=== PATIENT | female | born 1955 | race Caucasian/White ===

== ENCOUNTER 2017-07-24 11:38 | Day surgery (SDC) | payer OTHER ==
[2017-07-24] MEDS ORDERED: ceFAZolin 2 GM/D5W 50 ML IV BAG (J0690 PER 500MG) As Ordered (11:49)
[2017-07-24] MEDS: LR 1,000 ML IV (12:06)
[2017-07-24 12:12] LABS: BEDSIDE GLUCOSE 130 MG/DL (80-115)
[2017-07-24] MEDS ORDERED: LEVALBUTEROL 1.25 MG/0.5 ML CONCENTRATE NEB As Ordered (12:28)
[2017-07-24] MEDS: LEVALBUTEROL 1.25 MG/0.5 ML CONCENTRATE NEB INH (12:43)
[2017-07-24] MEDS ORDERED: LIDOCAINE 2% INJ 100 MG/5 ML SDV (FOR ANES.) As Ordered (13:26)
[2017-07-24] MEDS ORDERED: PROPOFOL 200 MG/20 ML VIAL As Ordered (13:26)
[2017-07-24] MEDS ORDERED: ROCURONIUM BROMIDE 50 MG/5 ML VIAL As Ordered (13:26)
[2017-07-24] MEDS ORDERED: fentaNYL 100 MCG/2 ML INJECTION (J3010) As Ordered ×3 (13:27→15:28)
[2017-07-24] MEDS ORDERED: MIDAZOLAM INJ 2 MG/2 ML VIAL (J2250) As Ordered (13:27)
[2017-07-24] MEDS ORDERED: SUCCINYLCHOLINE 100 MG/5 ML SYRINGE (J0330) As Ordered (13:47)
[2017-07-24] MEDS: ceFAZolin 2 GM/D5W 50 ML IV BAG (J0690 PER 500MG) IV (13:49)
[2017-07-24] MEDS ORDERED: ONDANSETRON 4MG/2ML VIAL (J2405) As Ordered (15:55)
[2017-07-24] MEDS ORDERED: GLYCOPYRROLATE INJ 0.2 MG/ML 2 ML VIAL As Ordered (15:56)
[2017-07-24] MEDS: BUPIVACAINE HCL 0.25% 30 ML VIAL As Ordered (15:57)
[2017-07-24] MEDS: BUPIVACAINE LIPOSOME/PF 1.3% 20 ML VIAL (13.3MG/ML)(EXPAREL) As Ordered (15:57)
[2017-07-24] MEDS ORDERED: LR 1,000 ML IV (17:00)
[2017-07-24] MEDS ORDERED: fentaNYL 100 MCG/2 ML INJECTION (J3010) IV (17:00)
[2017-07-24] MEDS ORDERED: HYDROmorphone HCL 1 MG/ML SYRINGE (J1170) IV (17:00)
[2017-07-24] MEDS: ONDANSETRON 4MG/2ML VIAL (J2405) IV (17:09)
[2017-07-24] MEDS: PERCOCET 5MG/325MG TAB PO (17:09)
== END 2017-07-24 19:00 | disposition home or self-care (01) ==
LOC: M SDC 11:38
DX: K42.0 Umbilical hernia with obstruction, without gangrene (principal); E03.9 Hypothyroidism, unspecified; I10 Essential (primary) hypertension; E78.5 Hyperlipidemia, unspecified; F41.9 Anxiety disorder, unspecified; F32.9 Major depressive disorder, single episode, unspecified; J45.909 Unspecified asthma, uncomplicated; E66.01 Morbid (severe) obesity due to excess calories; E11.9 Type 2 diabetes mellitus without complications; M17.0 Bilateral primary osteoarthritis of knee; N32.81 Overactive bladder; Z79.899 Other long term (current) drug therapy; Z79.84 Long term (current) use of oral hypoglycemic drugs
CPT/HCPCS: 49653

== ENCOUNTER → 2017-08-16 | Outpatient (REF) | payer OTHER ==
[2017-08-16 14:41] LABS: IMMUNOGLOBULIN E 76.5 IU/ML (<100)
== END ==
LOC: M LAB REF 13:20
DX: R05 Cough (principal)
CPT/HCPCS: 82785

== ENCOUNTER → 2020-09-09 | Outpatient (CLI) | payer OTHER ==
[~2020-09-09] MED LIST: ALOG25TA PO; AZEL1SPR3; CITA20TA6 PO; HYDR10TAB PO; HYDR12.55 PO; LORA10CA PO; MELO15TA28 PO; METF10004 PO; MONT10TA10 PO; SIMV20TA22 PO; SYNT137T7 PO; TIZA2CAP PO; VENTAER IN
--- NOTE | 2020-09-09 16:59 | REP ---
INDICATION: BI KNEE PAIN. COMPARISON: None. TECHNIQUE: Bilateral knee series: 10 views. FINDINGS: Five views of each knee are presented. There is advanced osteoarthritis in the medial compartment the right knee with obliteration of the medial joint space and reactive sclerosis on both sides of the narrowed joint space. There is patellofemoral spurring and some mild lateral spurring as well on the right. No acute abnormality is seen. Vascular calcification is noted. On the left, there are similar findings although slightly less pronounced. Osteoarthritis is most pronounced on the left in the medial compartment. Patellofemoral compartment spurring is noted as well. There is medial compartment sclerosis as well. No acute erosive changes seen. Subtle fullness in the suprapatellar bursa bilaterally may reflect joint fluid. IMPRESSION: . Advanced bilateral 3 compartment osteoarthritis. This is most pronounced in the medial compartment of each knee. <Electronically signed by Seun Burger > 09/09/20 [id number]
== END ==
LOC: M SOG 15:04
PROVIDERS: ATTEND Orthopaedic Surgery Sports Medicine
DX: M17.0 Bilateral primary osteoarthritis of knee (principal)

== ENCOUNTER → 2020-10-05 | Outpatient (REF) | payer OTHER ==
[2020-10-05 17:59] LABS: BASO # 0.1 10^3/uL (0.0-0.2); BASO % 0.7 % (0.0-1.0); EOS # 0.2 10^3/uL (0.0-0.5); HEMATOCRIT 38.4 % (36.0-47.0); HEMOGLOBIN 12.3 g/dl (12.0-15.5); LYMPH % 25.9 % (24.0-44.0); MEAN CORPUSCULAR HEMOGLOBIN 28.7 pg (27.0-33.0); MEAN CORPUSCULAR VOLUME 89.5 fl (80.0-96.0); MONO # 0.7 10^3/uL (0.0-0.8); MONO % 8.9 % (2.0-8.0); NEUTROPHILS # 4.8 10^3/uL (1.5-8.5); PLATELET COUNT, AUTOMATED 282 10^3/uL (150-450); RED BLOOD COUNT 4.29 10^6/uL (4.00-5.40); WHITE BLOOD COUNT 7.7 10^3/uL (4.0-10.0)
== END ==
LOC: M LAB REF 17:03
PROVIDERS: ATTEND Nurse Practitioner Family
DX: J45.40 Moderate persistent asthma, uncomplicated (principal)

== ENCOUNTER 2020-11-02 06:24 | Inpatient (IN) | payer OTHER ==
[~2020-11-02] VITALS: Ht 152.4 cm; Wt 107.9 kg
[~2020-11-02 06:24] MED LIST changes: +ACETAMINOPHEN 500 MG TAB PO ONE; -AZEL1SPR3; +AZEL1SPR3 NARES; +FLUT15.820; +FLUT1INH3 INH; +IPRA6SP; +LORA-243 PO; +LR 1,000 ML IV ONE; +MUCI600T31 PO; +NAPROXEN 250 MG TAB PO ONE; +NS 1,000 ML IV SCH; +OMEP1CAP73 PO; +PREGABALIN 25 MG CAP (LYRICA) PO ONE; +SYNT125T PO; +TESS100C PO; +TIOT18INH INH; +UNRESOLVED CLARIFICATION ENTRY XX SCH; +dexameTHASONE 4 MG/ML 1ML VIAL (J1100 PER 1MG) IV ONE
[2020-11-02] MEDS ORDERED: ROPIVA 125MG/EPINEPH 0.25MG/CLONID 40MCG/KETOR 15MG IN NS 50ML SYRINGE XX ONE (07:00)
[2020-11-02] MEDS ORDERED: TRANEXAMIC ACID 100 MG/ML 10ML VIAL As Ordered ONE (07:26)
[2020-11-02] MEDS ORDERED: TRANEXAMIC ACID INJection 1,000 MG in NS 60 ML IV ONE (07:30)
[2020-11-02] MEDS ORDERED: ceFAZolin SOD 2 GM in IV 1 EA IV ONE (07:35)
[2020-11-02] MEDS ORDERED: PREGABALIN 25 MG CAP (LYRICA) PO ONE (07:35)
[2020-11-02] MEDS ORDERED: dexameTHASONE 4 MG/ML 1ML VIAL (J1100 PER 1MG) IV ONE (07:35)
[2020-11-02] MEDS ORDERED: NAPROXEN 250 MG TAB PO ONE (07:35)
[2020-11-02] MEDS ORDERED: ACETAMINOPHEN 500 MG TAB PO ONE (07:35)
[2020-11-02] MEDS ORDERED: dexameTHASONE 4 MG/ML 1ML VIAL (J1100 PER 1MG) As Ordered ONE (08:15)
[2020-11-02] MEDS ORDERED: MIDAZOLAM INJ 2MG/2ML VIAL (J2250 PER 1MG) As Ordered ONE (08:15)
[2020-11-02] MEDS ORDERED: SEVOFLURANE INHAL SOLN 250 ML BTL As Ordered ONE (08:15)
[2020-11-02] MEDS ORDERED: LIDOCAINE 2% 100MG/5ML SDV (FOR ANES.) As Ordered ONE (08:15)
[2020-11-02] MEDS ORDERED: propofoL 200 MG/20 ML VIAL As Ordered ONE ×2 (08:15→10:12)
[2020-11-02] MEDS ORDERED: fentaNYL 100 MCG/2 ML INJECTION (J3010) As Ordered ONE ×2 (08:15→10:06)
[2020-11-02] MEDS ORDERED: ePHEDrine SULFATE 25 MG/5 ML(5MG/ML) SYRINGE As Ordered ONE (08:23)
[2020-11-02] MEDS ORDERED: PHENYLephrine 500MCG 5ML (100MCG/ML) SYRINGE As Ordered ONE ×2 (09:06→10:22)
[2020-11-02] MEDS ORDERED: LIDOCAINE 2% JELLY 5ML TUBE As Ordered ONE (09:07)
[2020-11-02] MEDS: LR 1,000 ML IV SCH ×2 (11:00→21:40)
[2020-11-02] MEDS ORDERED: oxyCODONE 5MG TAB PO PRN ×2 (11:15→11:55)
[2020-11-02] MEDS ORDERED: LR 1,000 ML IV SCH (11:15)
[2020-11-02] MEDS ORDERED: HYDROMORPHONE HCL 0.5 MG/ 0.5 ML SYRINGE (J1170 PER 1) IV PRN (11:15)
[2020-11-02] MEDS ORDERED: fentaNYL 100 MCG/2 ML INJECTION (J3010) IV PRN (11:15)
[2020-11-02] MEDS ORDERED: ONDANSETRON 4MG/2ML VIAL IV PRN ×2 (11:15→11:55)
--- NOTE | 2020-11-02 11:38 | ROOPDOC ---
[facility] Report Of Operation Report of Operation DATE OF PROCEDURE: 11/02/20 PREPROCEDURE DIAGNOSES: Left knee osteoarthritis POSTPROCEDURE DIAGNOSES: Knee osteoarthritis PROCEDURE: Left total knee arthroplasty SURGEON: MD Simon [employer] SALES MANAGER: ANESTHESIA: Spinal ESTIMATED BLOOD LOSS: Less than 200 mL. COMPLICATIONS: No complications REMARKS: Tourniquet inflated for approximately 70 minutes with a few minute interval in between. PROCEDURE NOTE: The patient was seen in the preoperative area and her left lower extremity was marked. Her past medical history did not exhibit any changes prior to surgical intervention. Components: Mulliken triathlon, X3 asymmetric patella 32 x 10 mm Triathlon posterior stabilized femoral component size 3 left Simplex bone cement, 2 packages Triathlon primary tibial baseplate size 3 Triathlon tibial bearing insert, 3 x 13 mm DESCRIPTION OF PROCEDURE: The patient was brought to the operating room and she was positioned on the table for a spinal anesthetic. A procedural timeout was carried out. The patient underwent a spinal anesthetic. She was then placed supine on the operating room table with appropriate padding and positioning. The left lower extremity had a tourniquet was applied and inflated into separate periods for total of 70 minutes. Throughout the procedure. She received 2 g of Ancef IV and 1 g of IV tranexamic acid. Prior to incision. The patient had a chlorhexidine brush swab and cleansed of the leg with 2 times, alcohol, cleansed his than a hydrogen peroxide White of the incision site followed by 2 times chlorhexidine prep. A sterile prep and drape and fold. During the sterile drape. An additional chlorhexidine prep was applied. A surgical safety timeout and checklist was performed. Incision was made in the standard fashion. This was carried down through skin and subcutaneous tissue to the fascia of the knee. A medial arthrotomy is carried out. Suction was applied to the joint fluid. This was carried down and soft tissue releases medially were performed. The patella was then everted and the fat pad was excised with electrocautery. This was followed by the anterior cruciate and the posterior cruciate ligaments. Hemostasis was achieved with the electrocautery. The tourniquet was inflated due to excessive oozing. Hohmann retractors were placed to protect the collateral ligaments. The anterior aspect of the femur had some soft tissue off the anterolateral aspect removed with electrocautery. The medial placed intramedullary reamer was placed followed by the intramedullary jig placed at 6 of valgus cut angle for the left knee. This was attached and pins were placed for the distal femoral cut, which was performed. The jigs were then removed and the cut was checked and found to be good. Attention was turned to the tibia. The external tibial jig was applied, and 9 mm of bone was taken off the high lateral side. This was checked prior to excision with the blade runner. The PCL protecting retractor was placed and the saw cuts were made. The bone was removed. Attention was then turned to the medial tibial plateau where there was some sclerotic bone. There had been some skiving tears of the saw was run over this to level this portion of the bone out. Attention was turned to the femur and the femoral sizing guide for the left side at 3 of external rotation was placed. This was found to be approximately a size 3. The 3 4-in-1 cutting block was applied. The anterior cut was made followed by the posterior and the anterior, posterior chamfers. The guide was removed. A lamina clerk rating was used to expose the space between the bones. The medial and lateral menisci as well as some PCL remnants were removed with electrocautery. Posterior osteophytes were removed with a curved osteotome and a rongeur. The tibia was then sized to a size 3. This was pinned in place in the appropriate amount of external rotation and the broach was impacted appropriately. Trial components were placed. The knee was taken through a range of motion. It was found to be stable in extension and flexion with a 13 mm polyethylene in position. Some medial soft tissue releases were performed and medial osteophytes were removed with a rongeur in order to check this balance. The patella was then addressed. A freehand cut was performed after measuring approximately 21 mm thickness. 10 mm of thickness, was removed freehand cut. A 32 mm polyethylene guide was placed and reamed and trialed and found to be appropriate. A lateral facetectomy was carried out using a rongeur to remove excess bone. The bone was then irrigated with normal sterile saline and tranexamic acid was placed in the wound with some Betadine to soak for 3 minutes. The final components were opened The wound was then irrigated out after 3 minutes. The tourniquet was let down an d the leg was placed in extension to look for any obvious bleeding vessels. No bleeding vessels were obvious. There was just a small trickle was from the central canal of the femur. The tourniquet was then placed up again and the bones were irrigated with the sterile solution and the local anesthetic cocktail of RACK was applied and a periarticular manner. Dry sponges were applied to the bone surfaces to tamp and dry. The cement was then mixed using 2 packages of non-antibiotic cement. Cement was applied to the tibia component followed by the tibia itself and impacted with excess cement that was extruded removed with a Pima. Cement was then applied to the femoral component and the femur. This was placed in position and impacted. Extruded cement was removed with a Pima. The 11 mm polyethylene insert was placed. The leg was brought into extension and the patellar component had cement applied to the patella and the component and this was held in place with the appropriate clamp. After positioned appropriately. Leg was brought up into flexion and extruded cement was again removed. The cement was allowed to dry with the leg in extension and a dilute Betadine solution in the knee joint. Once the cement had cured, the knee was brought into flexion and a 13 mm po lyethylene insert was placed. This was taken through a range of motion and found to be stable in flexion and extension. The trial polyethylene was removed and the knee was irrigated. The final polyethylene 13 mm insert was placed and impacted and tested to be secure with a Pima. The wound was then thoroughly irrigated and all exposed. Bleeders were treated with electrocautery. Interrupted 1. 0 Monocryl sutures were used to tack the arthrotomy closed. This was followed by the running strata fix suture, #1. The subcutaneous tissue was closed with a #1 Vicryl followed by running 2-0 Vicryl. Due to the paperlike soft tissue of the skin at the distal end of the wound. A running locking 2. 0 nylon suture was used. A Mepilex dressing was placed. ABD pads plus an Jay Jay wrap were applied to the limb. The patient also received an ice pack in recovery. She was taken to recovery in stable condition with no known complications. I spoke with her sister postoperatively. At her request. I contacted the hospitalist service for admission for this patient. I completed the orthopedic postop total joint arthroplasty knee set of orders. The patient had x-rays and PACU which demonstrated that the prosthesis was in good position with no obvious complications. Procedure the patient for review tomorrow morning to determine if she has been progressing well enough for discharge home KHADAR SARGENT MD November 02, 2020 11:38
[2020-11-02] MEDS ORDERED: traMADol 50 MG TAB PO PRN ×2 (11:50→11:55)
--- NOTE | 2020-11-02 11:57 | REP ---
INDICATION: S/P LEFT TOTAL KNEE, PT IN RECOVERY ROOM COMPARISON: 09/09/2020. TECHNIQUE: AP and lateral left knee. FINDINGS: Total knee prosthesis is in good position. Osseous structures are well-aligned. Postsurgical air is seen anteriorly. IMPRESSION: Left total knee prosthesis in good position. <Electronically signed by Ramiro Petersen > 11/02/20 [id number]
[2020-11-02] MEDS: ACETAMINOPHEN TAB 650MG DOSE (2X325MG) PO SCH ×3 (12:00→23:18)
[2020-11-02] MEDS ORDERED: SENNA 8.6 MG TAB (SENOKOT) PO PRN (12:00)
[2020-11-02 12:15] VITALS: BP 120/76
[2020-11-02] MEDS ORDERED: MOM 30ML SUSPENSION UDC PO PRN (12:35)
[2020-11-02] MEDS ORDERED: MAALOX 30 ML SUSP *UDC PO PRN (12:35)
[2020-11-02] MEDS ORDERED: ALBUTEROL 90 MCG/ACT 8GM HFA INHALER INH PRN (12:40)
[2020-11-02] MEDS ORDERED: DEXTROSE 50% 50 ML SYRINGE IV PRN (12:40)
[2020-11-02] MEDS ORDERED: GLUCOSE 4GM CHEW TABLET PO PRN (12:40)
[2020-11-02] MEDS ORDERED: GLUCAGON INJ 1MG VIAL SC PRN (12:40)
[2020-11-02 12:45] VITALS: BP 140/76
--- NOTE | 2020-11-02 12:46 | HPEPDOC ---
[facility] Medical History & Physical Date of Admission November 02, 2020 Date of Service: November 02, 2020 History and Physical CHIEF COMPLAINT: Left knee arthroplasty HISTORY OF PRESENT ILLNESS: 65-year-old female admitted to the hospital status post same-day surgery for total left knee replacement. Patient tells me she's been having arthritis in her knees for a long time and she had failed conservative management it got to the point were was fill-un-cycw and intolerable pain or she opted to have a left total knee replacement with Dr. Montes which was completed on 11/02/2020. Postoperatively I was asked by Dr. Montes to admit the patient for pain control and evaluation by physical therapy. At this time patient tells me she believes her surgery went well and she feels her pain is well-controlled. She denies any chest pain or shortness of breath or abdominal pain. She does endorse that she has right knee pain and hopes to get a right knee replacement as well down the line. PAST MEDICAL/SURGICAL HISTORY: Asthma Hypertension Hyperlipidemia Hypothyroidism Ihx-gjctqcf-eauvingra diabetes Anxiety and depression Umbilical hernia repair ~ 4 years ago SOCIAL HISTORY: Denies alcohol use Denies tobacco use Denies illicit drug use Lives at home with her FAMILY HISTORY: Father and brother have a history of CAD Mother has a history of CVA ALLERGIES: Please see below. REVIEW OF SYSTEMS: 10 point review of systems complete all negative otherwise stated in HPI HOME MEDICATIONS: Please see below. PHYSICAL EXAMINATION: Constitutional: Awake and alert, in no apparent distress, obese. ENT: Sclera are clear. Mucosa is moist. Respiratory: Lungs CTA bilaterally. No respiratory distress. Cardiovascular: RRR S1 and S2 are normal, no murmur Gastrointestinal: Abdomen is soft, non distended, non tender, BS present. Musculoskeletal: No lower extremity edema. Dressing around left knee. Neurologic: No focal neurological deficit. Mental Status: A&O x3, normal affect Skin: No visible rashes LABORATORY DATA: See below. IMAGING: See chart MICROBIOLOGY: Please see below. ASSESSMENT/PLAN 65-year-old female admitted after same-day surgery for left knee total arthroplasty for pain control and evaluation by physical therapy. # Total left knee arthroplasty: Management per orthopedic surgery Dr. Montes. Pain control. Baby aspirin twice a day. Antibiotics Ancef per surgery. PT/OT. # Hypertension: Continue home meds. Monitor and titrate. Takes hydralazine twice daily which isn't a typical first-line medication for hypertension I will continue for now and defer changing her antihypertensive medications to her primary care physician. # DM: ISS. Frequent Accu-Cheks. Hypoglycemic precautions. Hold home metformin. # Hypothyroidism: resume Synthroid. # Asthma: Not in exacerbation. Continue medications and inhalers. # Hyperlipidemia: Continue statin # Anxiety and depression: Continue home citalopram # DVT prophylaxis: Heparin A Yousef Hospitalist Vital Signs Vital Signs Date Time Temp Pulse Resp B/P (MAP) Pulse Ox O2 Delivery O2 Flow Rate FiO2 11/02/20 11:50 96.5 78 18 138/67 (90) 100 11/02/20 11:46 Room Air Laboratory Data Labs 24H Laboratory Tests 2 11/02/20 07:25: Bedside Glucose (Misc Panel) 159H Home Medications Scheduled Alogliptin Benzoate (Alogliptin) 25 Mg Tab, 25 MG PO DAILY Azelastine HCl (Azelastine HCl) 0.1 % Spr, 0.1 % NA BID Benzonatate (Tessalon Perle) 100 Mg Capsule, 100 MG PO TID Citalopram Hydrobromide (Citalopram HBr) 20 Mg Tab, 20 MG PO DAILY Fluticasone Propion/Salmeterol (Fluticasone-Salmeterol 232-14) 1 Each Aer.pow.ba, 1 INH INH BID Fluticasone Propionate (Fluticasone Propionate) 15.8 Ml Tatum.susp, 50 MCG NA DAILY Guaifenesin (Mucinex) 600 Mg Tab.er.12h, 600 MG PO BID Hydralazine HCl (Hydralazine HCl) 10 Mg Tab, 10 MG PO BID Hydrochlorothiazide (Hydrochlorothiazide) 12.5 Mg Tab, 12.5 MG PO DAILY Ipratropium [place] (Ipratropium [place]) 15 Ml Tatum, 1 SPRAY NA DAILY Levothyroxine Sodium (Synthroid) 125 Mcg Tablet, 125 MCG PO DAILY Loratadine (Loratadine) 10 Mg Tablet, 10 MG PO DAILY Meloxicam (Meloxicam) 15 Mg Tab, 7.5 MG PO DAILY Metformin HCl (Metformin HCl) 1,000 Mg Tab, 500 MG PO BID Montelukast Sodium (Montelukast Sodium) 10 Mg Tab, 10 MG PO DAILY Omeprazole (Omeprazole) 20 Mg Capsule.dr, 20 MG PO DAILY Simvastatin (Simvastatin) 20 Mg Tab, 20 MG PO DAILY Tiotropium [place] Monohydrate (Spiriva) 18 Mcg Cap.w.dev, 1 INHALATION INH DAILY Scheduled PRN Albuterol Sulfate (Ventolin Hfa) 108 Mcg/Act Aer, 108 MCG IN Q6HP PRN for WHEEZING Tizanidine HCl (Tizanidine HCl) 2 Mg Cap, 2 MG PO Q6HP PRN for MUSCLE SPASMS Allergies Coded Allergies: ENVIROMENTAL (Verified Allergy, Unknown, 10/26/20) A-FIB/CHADSVASC A-FIB History Current/History of A-Fib/PAF?: No JAN SEAMAN MD November 02, 2020 12:46
[2020-11-02 13:19] LABS: HEMATOCRIT 37.7 % (36.0-47.0); HEMOGLOBIN 12.1 g/dl (12.0-15.5); MEAN CORPUSCULAR HEMOGLOBIN 28.7 pg (27.0-33.0); MEAN CORPUSCULAR HGB CONC 32.1 g/dl (32.0-36.5); MEAN CORPUSCULAR VOLUME 89.3 fl (80.0-96.0); PLATELET COUNT, AUTOMATED 298 10^3/uL (150-450); RED BLOOD COUNT 4.22 10^6/uL (4.00-5.40); WHITE BLOOD COUNT 10.4 10^3/uL (4.0-10.0)
[2020-11-02 13:45] VITALS: BP 135/77
[2020-11-02] MEDS ORDERED: MELO7.5T35 PO (13:51)
[2020-11-02] MEDS ORDERED: TRAZ-252 PO (13:51)
[2020-11-02] MEDS ORDERED: LEVO125T4 PO (13:51)
[2020-11-02] MEDS ORDERED: JARD1TAB PO (13:51)
[2020-11-02] MEDS ORDERED: VITA50005 PO (13:51)
[2020-11-02 13:52] LABS: CALCIUM LEVEL 9.5 MG/DL (8.8-10.2); CREATININE FOR GFR 1.14 MG/DL (0.55-1.30); GLOMERULAR FILTRATION RATE 51.1 (>45); POTASSIUM SERUM 4.1 MEQ/L (3.5-5.1); THYROID STIMULATING HORMONE 0.414 uIU/ML (0.358-3.740)
[2020-11-02] MEDS ORDERED: METF-839 PO (14:02)
[2020-11-02 14:45] VITALS: BP 112/61
[2020-11-02 15:45] VITALS: BP 110/60
[2020-11-02] MEDS: ceFAZolin SOD 2 GM in IV 1 EA IV SCH ×2 (16:27→23:18)
[2020-11-02] MEDS: BENZONATATE 100 MG CAP PO SCH ×2 (16:27→21:19)
[2020-11-02] MEDS ORDERED: ACETAMINOPHEN TAB 650MG DOSE (2X325MG) PO SCH (18:00)
[2020-11-02] MEDS: HumaLOG INSULIN (NovoLOG) PER UNIT SC SCH (18:14)
--- NOTE | 2020-11-02 18:20 | ECGEPIP ---
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
[2020-11-02] MEDS ORDERED: SIMVASTATIN 20 MG TAB PO SCH (21:00)
[2020-11-02] MEDS ORDERED: HumaLOG INSULIN (NovoLOG) PER UNIT SC SCH (21:00)
[2020-11-02] MEDS ORDERED: DOCUSATE SODIUM 100MG CAPSULE PO SCH (21:00)
[2020-11-02] MEDS: HEPARIN SOD (PORCINE) 5000UNITS/ML 1ML VIAL/SYRINGE SQ SCH (21:18)
[2020-11-02] MEDS: DOCUSATE SODIUM 100MG CAPSULE PO SCH (21:18)
[2020-11-02] MEDS: NAPROXEN 250 MG TAB PO SCH (21:18)
[2020-11-02] MEDS: ASPIRIN 81MG ENTERIC TABLET PO SCH (21:19)
[2020-11-02] MEDS: **hydrALAZINE** 10 MG TAB PO SCH (21:19)
[2020-11-02] MEDS: guaiFENesin ER 600 MG TAB PO SCH (21:19)
[2020-11-02 22:00] VITALS: BP 136/70
[2020-11-03] MEDS ORDERED: tiZANidine 4 MG TAB PO PRN (00:20)
[2020-11-03] MEDS: traZODone 50 MG TAB PO SCH ×2 (00:31→08:53)
[2020-11-03 02:00] VITALS: BP 117/71
[2020-11-03] MEDS: ACETAMINOPHEN TAB 650MG DOSE (2X325MG) PO SCH (05:09)
[2020-11-03 06:00] VITALS: BP 121/63
[2020-11-03] MEDS ORDERED: LEVOTHYROXINE 125MCG TABLET (0.125MG) PO SCH (06:00)
[2020-11-03 07:03] LABS: ALBUMIN 3.5 GM/DL (3.2-5.2); ALT/SGPT 16 U/L (12-78); BILIRUBIN,TOTAL 0.3 MG/DL (0.2-1.0); BLOOD UREA NITROGEN 19 MG/DL (7-18); CARBON DIOXIDE LEVEL 29 MEQ/L (21-32); CHLORIDE LEVEL 104 MEQ/L (98-107); CREATININE FOR GFR 0.97 MG/DL (0.55-1.30); GLOMERULAR FILTRATION RATE > 60.0 (>45); GLUCOSE, FASTING 133 MG/DL (70-100); POTASSIUM SERUM 4.3 MEQ/L (3.5-5.1); SODIUM LEVEL 139 MEQ/L (136-145); TOTAL PROTEIN 6.2 GM/DL (6.4-8.2)
--- NOTE | 2020-11-03 07:24 | IPNPDOC ---
Text Note Date of Service The patient was seen on 11/03/20. NOTE Postop day 1 from left total knee arthroplasty Patient was seen this morning. Overall, she states that her pain was well- controlled. She did have some muscular spasms and the pain medication did help with this. She denies any chest pain or shortness of breath. She was able to mobilize with the Rollator walker in the room. The left lower extremity is grossly neurovascularly intact. The dressing is intact with no obvious staining.. There is some bruising around the knee, h owever. The bulky dressing was taken down. X-ray imaging taken in PACU, demonstrates that the left total knee arthroplasty is in good position without any obvious signs of complication. The patient will work with physical therapy for possible discharge home today. Please see below for discharge instructions. The dressing will remain intact for 7 days. She will follow-up in approximately 10-14 days in the office for suture removal. The patient will have home care for nursing, physical therapy and occupational therapy arranged. Discharge Instructions Total Knee Arthroplasty 1. Pain: You may take medication as prescribed for pain. Supplement with ibuprofen and Tylenol as needed. Ice pack to operative knee as tolerated. 2. Wound care: Remove dressing on postop day 7. Call [phone] with any questions or concerns. Hygiene: The patient may shower. No tub baths. Check dressing seal prior to bathing. Once dressing is off, use Saran wrap around the knee and keep out of the stream of the shower to keep the wound dry. 3. Activity: WBAT on the left lower extremity. Front wheeled walker versus crutches for ambulation. Fall precautions. 4. Driving: No driving until cleared by your surgeon. Do not drive if taking narcotic pain medications as these may make you drowsy. 5. DVT Prophylaxis: Continue taking aspirin 81 mg by mouth twice a day as prescribed for the prevention of blood clots for 4 weeks. Ankle pumps every 1 hour while awake. TOM hose at all times for 1 month after surgery. May remove for hygiene and wound care. 6. Placement: Plan is to discharge patient to home with home health including nursing and physical therapy. 7. Surgeon Follow-up: The patient is scheduled to be seen in Dr. Sargent's office 2 weeks post op with xrays. 8. Primary care Follow-up: Please see your primary care provider in the next 2 to 5 weeks for general medical re-evaluation and medication review. 9. Labs: CBC without differential and BMP to be drawn on postop day 3 with results to PCP and please fax to [phone]. 10. Please contact [facility] if you have any questions or concerns at [phone]. VS,Fishbone, I+O VS, Fishbone, I+O Laboratory Tests 11/02/20 13:06 11/03/20 06:10 Vital Signs Date Time Temp Pulse Resp B/P (MAP) Pulse Ox O2 Delivery O2 Flow Rate FiO2 11/03/20 04:44 1.0 11/03/20 02:00 97.9 69 18 117/71 (86) 92 Nasal Cannula I&O- Last 24 Hours up to 6 AM 11/03/20 06:00 Intake Total 3945 ml Output Total 2050 ml Balance 1895 ml KHADAR SARGENT MD November 03, 2020 07:24
[2020-11-03] MEDS ORDERED: TIOTROPIUM INHALER/CAPSULE (SPIRIVA) INH SCH (08:00)
[2020-11-03] MEDS: DOCUSATE SODIUM 100MG CAPSULE PO SCH (08:46)
[2020-11-03] MEDS: ceFAZolin SOD 2 GM in IV 1 EA IV SCH (08:46)
[2020-11-03] MEDS: HumaLOG INSULIN (NovoLOG) PER UNIT SC SCH (08:46)
[2020-11-03] MEDS: BENZONATATE 100 MG CAP PO SCH (08:46)
[2020-11-03 08:47] VITALS: BP 117/71
[2020-11-03] MEDS: NAPROXEN 250 MG TAB PO SCH (08:47)
[2020-11-03] MEDS: **hydrALAZINE** 10 MG TAB PO SCH (08:47)
[2020-11-03] MEDS: HEPARIN SOD (PORCINE) 5000UNITS/ML 1ML VIAL/SYRINGE SQ SCH (08:48)
[2020-11-03] MEDS: ASPIRIN 81MG ENTERIC TABLET PO SCH (08:48)
[2020-11-03] MEDS: guaiFENesin ER 600 MG TAB PO SCH (08:52)
[2020-11-03] MEDS ORDERED: MONTELUKAST 10 MG TAB PO SCH (09:00)
[2020-11-03] MEDS ORDERED: ASCORBIC ACID 500 MG TAB PO SCH (09:00)
[2020-11-03] MEDS ORDERED: LORATADINE 10 MG TAB PO SCH (09:00)
[2020-11-03] MEDS ORDERED: CitaloPRAM (CeleXA) 20 MG TAB PO SCH (09:00)
[2020-11-03] MEDS ORDERED: FERROUS SULFATE 325MG TAB PO SCH (09:00)
[2020-11-03] MEDS ORDERED: hydroCHLOROthiazide 12.5 MG CAPSULE PO SCH (09:00)
[2020-11-03] MEDS ORDERED: IPRATROPIUM 0.06% NASAL SPRAY 15 ML (ATROVENT) SCH (09:00)
[2020-11-03] MEDS ORDERED: OMEPRAZOLE 20 MG CAP PO SCH (09:00)
--- NOTE | 2020-11-03 09:44 | DS.PDOC ---
Discharge Summary General Date of Admission November 02, 2020 at 12:33 Date of Discharge 11/03/20 Discharge Summary PROCEDURES PERFORMED DURING STAY: Total right knee arthroplasty ADMITTING/DISCHARGE DIAGNOSES: 1. Total right knee arthroplasty COMPLICATIONS/CHIEF COMPLAINT: Left Knee Osteoarthritis. HISTORY OF PRESENT ILLNESS/HOSPITAL COURSE: 65-year-old female admitted to the hospital status post same-day surgery for total left knee replacement. Patient tells me she's been having arthritis in her knees for a long time and she had failed conservative management it got to the point were was [id number] and intolerable pain or she opted to have a left total knee replacement with Dr. Montes which was completed on 11/02/2020. Postoperatively I was asked by Dr. Montes to admit the patient for pain control and evaluation by physical therapy. Patient was evaluated by physical therapy who cleared the patient for discharge patient will follow-up in the clinic with Dr. Montes. DISCHARGE MEDICATIONS: Please see below. ALLERGIES: Please see below. PHYSICAL EXAMINATION ON DISCHARGE: VITAL SIGNS: Please see below. Constitutional: Awake and alert, in no apparent distress, obese. ENT: Sclera are clear. Mucosa is moist. Respiratory: Lungs CTA bilaterally. No respiratory distress. Cardiovascular: RRR S1 and S2 are normal, no murmur Gastrointestinal: Abdomen is soft, non distended, non tender, BS present. Musculoskeletal: No lower extremity edema. Dressing around left knee. Neurologic: No focal neurological deficit. Mental Status: A&O x3, normal affect Skin: No visible rashes LABORATORY DATA: Please see below. IMAGING: See chart PROGNOSIS: Fair ACTIVITY: [As tolerated]. DIET: Carbohydrate consistent diet DISPOSITION: Home with home health DISCHARGE INSTRUCTIONS: Please follow up with your primary care physician within 1 week from discharge. If you do not have one, please follow up with us to schedule an appointment. Please keep all of your follow up appointments. Please call central to book your appointments with hospital specialists. Please take all your medications as prescribed. Please call/come to Clinic or go to the Emergency Department if - Temp >101, intractable Nausea/Vomiting, Diarrhea, Mouth sores, Headaches, Altered mental status, Seizures, sudden onset of swelling, bleeding, shortness of breath or chest pain. ITEMS TO FOLLOWUP ON ON OUTPATIENT: Follow-up with PCP within 5 days of discharge Follow-up with Dr. Montes in clinic DISCHARGE CONDITION: [Stable]. TIME SPENT ON DISCHARGE: 35 minutes. Vital Signs/I&Os Vital Signs Date Time Temp Pulse Resp B/P (MAP) Pulse Ox O2 Delivery O2 Flow Rate FiO2 11/03/20 08:47 117/71 11/03/20 04:44 1.0 11/03/20 02:00 97.9 69 18 92 Nasal Cannula I&O- Last 24 Hours up to 6 AM 11/03/20 06:00 Intake Total 3945 ml Output Total 2050 ml Balance 1895 ml Laboratory Data Labs 24H Laboratory Tests 2 11/02/20 13:06: Nucleated Red Blood Cells % (auto) 0.0, Anion Gap 8, Glomerular Filtration Rate 51.1, Calcium Level 9.5, Thyroid Stimulating Hormone (TSH) 0.414 11/02/20 16:53: Bedside Glucose (Misc Panel) 286H 11/02/20 20:38: Bedside Glucose (Misc Panel) 250H 11/03/20 06:10: Anion Gap 6L, Glomerular Filtration Rate > 60.0, Calcium Level 9.0, Total Bilirubin 0.3, Aspartate Amino Transf (AST/SGOT) 14, Alanine Aminotransferase (ALT/SGPT) 16, Alkaline Phosphatase 93, Total Protein 6.2L, Albumin 3.5, Albumin/Globulin Ratio 1.3 CBC/BMP Laboratory Tests 11/02/20 13:06 11/03/20 06:10 FSBS Laboratory Tests Test 11/02/20 16:53 11/02/20 20:38 Range/Units Bedside Glucose (Misc Panel) 286 250 80-115 MG/DL Discharge Medications Scheduled Alogliptin Benzoate (Alogliptin) 25 Mg Tab, 25 MG PO DAILY, (Reported) Azelastine HCl (Azelastine HCl) 0.1 % Spr, 1 SPRAY NARES BID, (Reported) Benzonatate (Tessalon Perle) 100 Mg Capsule, 100 MG PO TID, (Reported) Citalopram Hydrobromide (Citalopram HBr) 20 Mg Tab, 20 MG PO DAILY, (Reported) Empagliflozin (Jardiance) 10 Mg Tablet, 10 MG PO DAILY, (Reported) Ergocalciferol (Vitamin D2) (Vitamin D2) 50,000 Units Cap, 1 CAP PO 1XWK, (Reported) SUNDAYS Guaifenesin (Mucinex) 600 Mg Tab.er.12h, 600 MG PO BID, (Reported) Hydralazine HCl (Hydralazine HCl) 10 Mg Tab, 10 MG PO BID, (Reported) Hydrochlorothiazide (Hydrochlorothiazide) 12.5 Mg Tab, 12.5 MG PO DAILY, (Reported) Levothyroxine Sodium (Synthroid) 125 Mcg Tablet, 125 MCG PO 6XWK, (Reported) EVERY DAY EXCEPT SUNDAYS Levothyroxine Sodium (Levothyroxine Sodium) 125 Mcg Tablet, 250 MCG PO 1XWK, (Reported) SUNDAYS Loratadine (Loratadine) 10 Mg Tablet, 10 MG PO DAILY, (Reported) Meloxicam (Meloxicam) 7.5 Mg Tablet, 7.5 MG PO Q12H, (Reported) Metformin HCl (Metformin HCl) 500 Mg Tablet, 500 MG PO BID, (Reported) Montelukast Sodium (Montelukast Sodium) 10 Mg Tab, 10 MG PO DAILY, (Reported) Omeprazole (Omeprazole) 20 Mg Capsule.dr, 20 MG PO DAILY, (Reported) Simvastatin (Simvastatin) 20 Mg Tab, 20 MG PO DAILY, (Reported) Tiotropium [place] Monohydrate (Spiriva) 18 Mcg Cap.w.dev, 1 INHALATION INH DAILY, (Reported) Trazodone HCl (Trazodone HCl) 50 Mg Tablet, 50 MG PO BID, (Reported) Scheduled PRN Tizanidine HCl (Tizanidine HCl) 2 Mg Cap, 2 MG PO Q8H PRN for MUSCLE SPASMS, (Reported) Allergies Coded Allergies: ENVIROMENTAL (Verified Allergy, Unknown, 10/26/20) JAN SEAMAN MD November 03, 2020 09:44
[2020-11-03] MEDS ORDERED: ACET1TAB55 PO (09:48)
[2020-11-03] MEDS ORDERED: NAPR-849 PO (09:48)
[2020-11-03] MEDS ORDERED: ASCO50TA PO (09:48)
[2020-11-03] MEDS ORDERED: TRAM50TA2 PO (09:48)
[2020-11-03] MEDS ORDERED: ASPI-551 PO (09:48)
[2020-11-03 10:00] VITALS: BP 122/63
== END 2020-11-03 12:25 | disposition home or self-care (01) | DRG 302 ==
LOC: M SDC 06:24 → EDSTATUS 07:30 → M MS5PR 12:10 → M SDC 12:32 → M MS5PR 12:33
PROVIDERS: ADMIT Orthopaedic Surgery Adult Reconstructive Orthopaedic Surgery; ATTEND Orthopaedic Surgery Adult Reconstructive Orthopaedic Surgery
PROC: 0SRD0J9 Replacement of Left Knee Joint with Synthetic Substitute, Cemented, Open Approach (ICD-10-PCS; principal; 2020-11-02 07:30)
DX: M17.12 Unilateral primary osteoarthritis, left knee (principal); E11.65 Type 2 diabetes mellitus with hyperglycemia; I10 Essential (primary) hypertension; J45.909 Unspecified asthma, uncomplicated; E78.5 Hyperlipidemia, unspecified; E03.9 Hypothyroidism, unspecified; F41.9 Anxiety disorder, unspecified; F32.9 Major depressive disorder, single episode, unspecified; Z79.84 Long term (current) use of oral hypoglycemic drugs

== ENCOUNTER → 2020-11-16 | Outpatient (CLI) | payer OTHER ==
[~2020-11-16] MED LIST changes: +ACET1TAB55 PO; -ACETAMINOPHEN 500 MG TAB PO ONE; +ASCO50TA PO; +ASPI-551 PO; +JARD1TAB PO; +LEVO125T4 PO; -LR 1,000 ML IV ONE; +MELO7.5T35 PO; +METF-839 PO; +NAPR-849 PO; -NAPROXEN 250 MG TAB PO ONE; -NS 1,000 ML IV SCH; -PREGABALIN 25 MG CAP (LYRICA) PO ONE; +TRAM50TA2 PO; +TRAZ-252 PO; -UNRESOLVED CLARIFICATION ENTRY XX SCH; +VITA50005 PO; -dexameTHASONE 4 MG/ML 1ML VIAL (J1100 PER 1MG) IV ONE
--- NOTE | 2020-11-16 12:26 | REP ---
INDICATION: AFTERCARE Status post knee replacement. COMPARISON: 11/02/2020 TECHNIQUE: AP and cross-table lateral views. FINDINGS: The patient is status post left knee replacement with normal positioning and appearance to the femoral and tibial components. Soft tissue swelling noted decreased postsurgical changes and essentially complete resolution to the previously noted joint and subcutaneous gas. IMPRESSION: Status post left knee replacement. Decreasing postsurgical changes suggested <Electronically signed by Stephen Wilde > 11/16/20 2430
== END ==
LOC: M SOG 11:45
PROVIDERS: ATTEND Orthopaedic Surgery Adult Reconstructive Orthopaedic Surgery
DX: Z48.89 Encounter for other specified surgical aftercare (principal)

== ENCOUNTER → 2021-02-15 | Outpatient (RCR) | payer OTHER ==
[~2021-02-15] MED LIST changes: +ERGO500029 PO; +FLUT1AER4 IH; +VITA-243 PO; -VITA50005 PO
== END | disposition still patient (30) ==
LOC: M PT 14:50
PROVIDERS: ATTEND Orthopaedic Surgery Adult Reconstructive Orthopaedic Surgery
DX: Z01.818 Encounter for other preprocedural examination (principal)

== ENCOUNTER 2021-03-15 06:04 | Day surgery (SDC) | payer OTHER ==
[~2021-03-15] VITALS: Ht 152.4 cm; Wt 106.5 kg
[~2021-03-15 06:04] MED LIST changes: +LIDOCAINE 1% MDV 20ML VIAL SQ PRN; +LR 1,000 ML IV ONE; +ceFAZolin SOD 1 GM in D5W MINI-BAG PLUS 50 ML IV ONE
[2021-03-15] MEDS ORDERED: ceFAZolin SOD 1 GM in D5W MINI-BAG PLUS 50 ML IV ONE (06:15)
[2021-03-15] MEDS ORDERED: NAPROXEN 250 MG TAB PO ONE (07:00)
[2021-03-15] MEDS ORDERED: dexameTHASONE 4 MG/ML 1ML VIAL (J1100 PER 1MG) IV ONE (07:00)
[2021-03-15] MEDS ORDERED: ACETAMINOPHEN 500 MG TAB PO ONE (07:00)
[2021-03-15] MEDS ORDERED: NS 1,000 ML IV ONE (07:00)
[2021-03-15] MEDS ORDERED: ROPIVA 125MG/EPINEPH 0.25MG/CLONID 40MCG/KETOR 15MG IN NS 50ML SYRINGE PA ONE (07:00)
[2021-03-15] MEDS ORDERED: PREGABALIN 25 MG CAP (LYRICA) PO ONE (07:00)
[2021-03-15] MEDS ORDERED: ROCURONIUM BROMIDE 50 MG/5 ML VIAL As Ordered ONE ×3 (07:13→09:30)
[2021-03-15] MEDS ORDERED: fentaNYL 100 MCG/2 ML INJECTION (J3010) As Ordered ONE (07:13)
[2021-03-15] MEDS ORDERED: propofoL 200 MG/20 ML VIAL As Ordered ONE (07:13)
[2021-03-15] MEDS ORDERED: MIDAZOLAM INJ 2MG/2ML VIAL (J2250 PER 1MG) As Ordered ONE (07:13)
[2021-03-15] MEDS ORDERED: LIDOCAINE 2% 100MG/5ML SDV (FOR ANES.) As Ordered ONE (07:13)
[2021-03-15] MEDS ORDERED: TRANEXAMIC ACID 100 MG/ML 10ML VIAL As Ordered ONE ×3 (07:51→07:54)
[2021-03-15] MEDS ORDERED: ePHEDrine SULFATE 25 MG/5 ML(5MG/ML) SYRINGE As Ordered ONE ×2 (07:55→10:05)
[2021-03-15] MEDS ORDERED: MORPHINE 10 MG/ML 1ML VIAL (J2270) As Ordered ONE (08:31)
[2021-03-15] MEDS ORDERED: ONDANSETRON 4MG/2ML VIAL As Ordered ONE (08:32)
[2021-03-15] MEDS ORDERED: NEOSTIGMINE 10MG/10ML VIAL (J2710 PER 0.5MG) As Ordered ONE (08:32)
[2021-03-15] MEDS ORDERED: GLYCOPYRROLATE INJ 0.2 MG/ML 2 ML VIAL As Ordered ONE (08:32)
[2021-03-15] MEDS ORDERED: METOCLOPRAMIDE INJ 10MG/2ML VIAL (J2765 PER 1) As Ordered ONE (08:32)
[2021-03-15] MEDS ORDERED: PHENYLephrine 500MCG 5ML (100MCG/ML) SYRINGE As Ordered ONE ×2 (08:36→09:36)
[2021-03-15] MEDS ORDERED: ALBUTEROL 6.7GM INHALER **FOR ANES. CART/OMNICELL ONLY As Ordered ONE (10:10)
[2021-03-15] MEDS ORDERED: MORPHINE 2 MG/ML 1ML VIAL (J2270) IV PRN (10:45)
[2021-03-15] MEDS ORDERED: ONDANSETRON 4MG/2ML VIAL IV PRN ×2 (10:45)
[2021-03-15] MEDS ORDERED: SENNA 8.6 MG TAB (SENOKOT) PO PRN (10:45)
[2021-03-15] MEDS ORDERED: oxyCODONE 5MG TAB PO PRN ×3 (10:45)
[2021-03-15] MEDS ORDERED: fentaNYL 100 MCG/2 ML INJECTION (J3010) IV PRN (10:45)
[2021-03-15] MEDS ORDERED: traMADol 50 MG TAB PO PRN (10:45)
[2021-03-15] MEDS ORDERED: LR 1,000 ML IV SCH (10:45)
--- NOTE | 2021-03-15 10:46 | ROOPDOC ---
[facility] Report Of Operation Report of Operation DATE OF PROCEDURE: 03/15/21 PREPROCEDURE DIAGNOSES: Right knee osteoarthritis POSTPROCEDURE DIAGNOSES: Right knee osteoarthritis PROCEDURE PERFORMED: Right [facility] total knee SURGEON: Khadar Sargent MD ICD 10 modifier 22: 50% more time and 50% more physical effort were utilized during this procedure as a result of the patient's significant tibia vera. Her short extremity also caused increased difficulty of the procedure also associated with her tibia vera and rotational deformity PAROLE DIRECTOR: Cindy Diaz PA-C ANESTHESIA: General ESTIMATED BLOOD LOSS: Approximately less than 300 mL. COMPLICATIONS: No known complications. REMARKS: Patient was seen in the preoperative area and her right knee was marked. Consent was reviewed for the [facility] left total knee arthroplasty as well. Tourniquet was briefly inflated during the procedure in order to cauterize a bleeding vessel for approximately 6-minute. The patient was quite oozy throughout the procedure; however the tourniquet seem to create a venous tourniquet he which increased oozing thus it was discontinued after bleeding vessels had been appropriately cauterized The patient was also noted to have significant proximal tibia vera and some tibial torsion as well. As she moved from extension into flexion there appeared to be internal rotation of the tibia. Components: Esteban triathlon system press-fit 32 mm patella Size 2 tibia and size 2 femur PS 14 mm PS polyethylene FINDINGS: Tricompartmental osteoarthritis left knee SPECIMENS REMOVED: None PROCEDURE NOTE: The patient was seen in the preoperative area and her status was updated. [facility] plan was reviewed prior to surgery and adjusted appropriately. DESCRIPTION OF PROCEDURE: Patient was taken to the operating room and after a checklist was performed, the patient underwent a general anesthetic. The patient was then placed supine. The operative leg was then cleansed with chlorhexidine wash followed by 2 times alcohol swab followed by hydrogen peroxide wash. 2 chlorhexidine prep once were then used to clean the leg. The operative extremity was then prepped and draped in the standard sterile fashion. This was done utilizing the Minuum leg humphrey device. A surgical pause was then carried out followed by the surgical safety checklist. 2 stab hole incisions were made approximately 4 fingerbreadths below the tibial tubercle of the left knee for the tibial array pins which were placed. The midline incision over the knee followed by the medial arthrotomy was then carried out. Cautery was used to control bleeders. The soft tissue and fat pad were removed using electrocautery. The femoral array pins were then placed in the distal femoral shaft from medial to lateral. The femoral tracker was then placed followed by the tibial tracker. The arrays were then placed over the array pins. The hip center was checked followed by the medial and lateral condyles of the ankle. The registration of the femur and tibia then occurred using the arrays in the Dmitri system. Osteophytes were removed at this point, as needed. The leg was then brought into extension and varus and valgus stresses were applied in extension and spoons were used for tensioning as well as a Pierson in flexion of approximately 95 degrees. An additional soft tissue release was performed due to the significant varus of greater than 18 degrees. Once the soft tissue adjustments were made to the Dmitri plan, the plan was carried out utilizing the robot. The 90 degree blade cuts were made first followed by the straight blade cuts. Once all the cuts were completed with the assistance of the Minuum robot, the rongeur and osteotome were used to remove the bone segments. A lamina slate roofer helper was used to help remove the medial lateral menisci remnants followed by a curved osteotome to remove any posterior osteophytes from the medial or lateral femoral condyles. A trial femur was placed and secured with a pin. The tibial component was then placed with an 11 mm polyinsert. This was brought into extension and found to have some laxity. This was increased gradually and ultimately a 14 mm provided appropriate stability in both flexion and extension. The leg was then brought into extension and the patella was measured using the caliper. A freehand cut using towel clips was used to remove the patellar surface. This was then clamped and reamed appropriately for the press-fit components. A trial was placed and taken through range of motion and found to be nice and stable. Due to the patient's tibia vera which was significantly corrected there was still little bit of some varus valgus laxity so a PS component was utilized. The PS box was pinned to the femoral side and the notch cut was performed utilizing a sagittal saw and the osteotome. The lug holes were appropriately drilled as well The tibia was then appropriately positioned with the correct amount of rotation lined up with the medial third of the tibial tubercle. This was pinned and the keel punch was completed followed by the four-point reaming for the press-fit component. The RE CK local anesthetic cocktail was instilled in the standard fashion. The wound was thoroughly irrigated with pulse lavage. The tibia was then press-fit in position using the mallet and impactors. The femur was then flexed high and positioned aligning the lug holes. This component was impacted then brought out into 90 degrees and impacted further to avoid anywhere to the metal components. The 14 mm PS polyethylene insert was then trialed, found appropriate and the final component was placed and impacted. The leg was brought into extension and the press-fit polyethylene patellar component was tightened and impacted utilizing the compression device The leg was taken through stable range of motion. It was thoroughly irrigated. Electrocautery was used to control any bleeders. A layered closure using #1 Vicryl followed by strata fix for the arthrotomy. #1 Vicryl to close down the subcutaneous tissue followed by running locking two-point 0 nylon for full- thickness skin and subcutaneous tissue due to the patient's thin skin. 2 interrupted sutures were used to close the distal tibial array pin sites with antibacterial three-point 0 Monocryl. Layered irrigation with saline and Betadine occurred. Steri-Strips with Mastisol were applied followed by the Mepilex dressing Patient tolerated the procedure well with no known complications. They were taken to the recovery room in stable condition. The patient will be admitted to the hospitalist service with plan for evaluation with physical therapy and possible discharge home tomorrow. Discharge Instructions Total Knee Arthroplasty 1. Pain: You may take oxycodone as prescribed for pain. Supplement with Naproxen and Tylenol as needed. Ice pack to operative knee as tolerated. 2. Wound care: Remove dressing on postop day 7. Call [phone] with any questions or concerns. Hygiene: The patient may shower. No tub baths. Check dressing seal prior to bathing. 3. Activity: WBAT right lower extremity. Front wheeled walker versus crutches for ambulation. Fall precautions. 4. Driving: No driving until cleared by your surgeon. Do not drive if taking narcotic pain medications as these may make you drowsy. 5. DVT Prophylaxis: Continue taking ASA 81 mg p.o. twice daily as prescribed for the prevention of blood clots. Ankle pumps every 1 hour while awake. TOM hose at all times for 1 month after surgery. May remove for hygiene and wound care. 6. Placement: Plan is to discharge patient to home with home health including nursing and physical therapy. 7. Surgeon Follow-up: The patient is scheduled to be seen in Dr. Sargent's office 2 weeks post op with xrays. 8. Primary care Follow-up: Please see your primary care provider in the next 2 to 5 weeks for general medical re-evaluation and medication review. 9. Labs: CBC without differential to be drawn on postop day 3 with results to PCP and please fax to [phone]. 10. Please contact [facility] if you have any questions or concerns at [phone]. KHADAR SARGENT MD Mar 15, 2021 10:45
[2021-03-15] MEDS ORDERED: DEXTROSE 50% 50 ML SYRINGE IV PRN (10:55)
[2021-03-15] MEDS ORDERED: GLUCAGON INJ 1MG VIAL SC PRN (10:55)
[2021-03-15] MEDS ORDERED: GLUCOSE 4GM CHEW TABLET PO PRN (10:55)
--- NOTE | 2021-03-15 11:07 | REP ---
INDICATION: POST OP COMPARISON: None TECHNIQUE: AP and lateral FINDINGS: The patient is status post TKR. The femoral and tibial components are well seated and well approximated. The alignment is near anatomical. There is expected postoperative soft tissue swelling. IMPRESSION: Status post TKR as described above <Electronically signed by Godwin Cedeno > 03/15/21 110
[2021-03-15] MEDS ORDERED: FLON1SPR NARES (11:45)
[2021-03-15 12:00] VITALS: BP 132/85
--- NOTE | 2021-03-15 12:29 | HPEPDOC ---
[facility] Medical History & Physical Date of Admission Mar 15, 2021 Date of Service: Mar 15, 2021 Other Provider Estuardo Montes MD, orthopedic surgery Attending Physician: MALISSA RHODES DO History and Physical CHIEF COMPLAINT: Right knee total arthroplasty HISTORY OF PRESENT ILLNESS: Patient is a 65-year-old female who presented to the hospital for her right knee total arthroplasty as performed by Dr. Montes of orthopedic surgery. Patient was in her usual state of health prior to coming in for the surgery. Patient is having some mild pain in her right knee but is otherwise feeling well when seen in the postop area. Patient states that she had a left knee total arthroplasty in October 2020 which went well. Patient has been treating her knee issues with conservative measures but ended up needing replacements at this time. Patient does not have any other complaints at this time. PAST MEDICAL HISTORY: 1. Asthma. 2. Hypertension. 3. Hyperlipidemia. 4. Hypothyroidism 5. Type 2 diabetes mellitus 6. Anxiety and depression PAST SURGICAL HISTORY: 1. Umbilical hernia repair about 4 years ago. 2. Left total knee arthroplasty October 2020. SOCIAL HISTORY: Patient denies smoking cigarettes, alcohol use or illicit drug use. Lives at home with her . FAMILY HISTORY: Patient's father and brother have a history of coronary artery disease. Mother has a history of CVA ALLERGIES: Please see below. REVIEW OF SYSTEMS: General: Patient denies fevers HEENT: Patient denies headaches Cardiovascular: Patient denies chest pain Respiratory: Patient denies shortness of breath, cough GI: Patient denies abdominal pain, nausea, vomiting, diarrhea : Patient denies increased frequency or pain with urination Extremities: Patient reports pain in her right knee with the surgery was perform ed Neurological: Patient denies numbness or tingling in legs Skin: Patient denies any new rashes or lesions. Hematologic: Patient denies any easy bruising. Lymphatic: Patient denies any lumps lumps or bumps in neck, axilla, or groin HOME MEDICATIONS: Please see below. PHYSICAL EXAMINATION: VITAL SIGNS: Temperature 97.7, pulse 89, respiratory rate 16, blood pressure 100/52, pulse oximetry 96% on 2 L of oxygen via nasal cannula General: Alert and oriented female patient who was laying bed in the PACU when I walked down. Patient did not appear to be in any acute distress. HEENT: Normocephalic, atraumatic, moist mucous membranes. Neck: No lymphadenopathy or thyromegaly Cardiac: Regular rate and rhythm, no murmurs, normal S1, normal S2 Pulm: Clear to auscultation bilaterally. No wheezes, rhonchi, rales Abd: Nondistended, nontender to palpation, normal bowel sounds Ext: No edema bilateral lower extremities. The right knee was wrapped in an Jay Jay wrap. Neuro: Patient was able to move all 4 extremities on command and reported equal sensation light touch in all 4 extremities. Skin: Skin of the head, neck, upper and lower extremities was examined did not show any evidence of rash or wounds. LABORATORY DATA: See below. IMAGING: Right knee x-ray performed on 03/07/2021 was reported to show status post total knee replacement with the femoral and tibial components well-seated and well approximated. MICROBIOLOGY: Please see below. ASSESSMENT: 65-year-old female who presented to the hospital for a right total knee arthroplasty. . PLAN: 1. Right knee osteoarthritis. Patient had right total knee arthroplasty performed by Dr. Montes earlier today. Patient will continue to work with physical therapy. Pain control per orthopedic surgery. Once patient is doing well physical therapy, the patient be discharged possibly in the next 24 to 48 hours. 2. Type 2 diabetes mellitus. Patient only takes Metformin outpatient. We will place patient on sliding scale insulin as well as a consistent carbohydrate diet. 3. Hypertension. Will continue patient's home medications with hold parameters. 4. Hyperlipidemia. We did the patient's on medications. 5. Asthma. Patient does not appear in exacerbation today. We will continue to monitor the patient's oxygen saturation while she is hospitalized especially in the postoperative. 6. Depression anxiety. Continue patient on medications. 7. Hypothyroidism. Continue the patient's on medications. 8. DVT prophylaxis teds and sequentials with aspirin per orthopedic surgery. 9. CODE STATUS: Full code Disposition: Patient be admitted to medical surgical floor and work of physical therapy after her surgery. Patient can be discharged once doing well physical therapy. Vital Signs Vital Signs Date Time Temp Pulse Resp B/P (MAP) Pulse Ox O2 Delivery O2 Flow Rate FiO2 03/15/21 11:40 89 16 100/52 (68) 96 Nasal Cannula 2.0 03/15/21 11:30 97.7 Laboratory Data Labs 24H Laboratory Tests 2 03/15/21 07:23: Bedside Glucose (Misc Panel) 149H Home Medications Scheduled Acetaminophen (Acetaminophen) 325 Mg Tablet, 650 MG PO Q6H Alogliptin Benzoate (Alogliptin) 25 Mg Tab, 25 MG PO DAILY Ascorbic Acid (Vitamin C) 500 Mg Tablet, 1,000 MG PO DAILY Benzonatate (Tessalon Perle) 100 Mg Capsule, 100 MG PO TID Citalopram Hydrobromide (Citalopram HBr) 20 Mg Tab, 20 MG PO DAILY Ergocalciferol (Vitamin D2) (Vitamin D2) 50,000 Units Cap, 1 CAP PO 1XWK SUNDAYS Fluticasone Propion/Salmeterol (Airduo Digihaler 232-14 Mcg) 232 Mcg-14 Mcg/Actuation Aer.pw.bas, 1 EACH IH BID Fluticasone Propionate (Flonase Allergy Relief) 9.9 Ml [place].susp, 2 SPRAY NARES DAILY Guaifenesin (Mucinex) 600 Mg Tab.er.12h, 600 MG PO BID Hydralazine HCl (Hydralazine HCl) 10 Mg Tab, 10 MG PO BID Hydrochlorothiazide (Hydrochlorothiazide) 12.5 Mg Tab, 12.5 MG PO DAILY Levothyroxine Sodium (Synthroid) 125 Mcg Tablet, 125 MCG PO 6XWK EVERY DAY EXCEPT SUNDAYS Levothyroxine Sodium (Levothyroxine Sodium) 125 Mcg Tablet, 250 MCG PO 1XWK SUNDAYS Loratadine (Loratadine) 10 Mg Tablet, 10 MG PO DAILY Metformin HCl (Metformin HCl) 500 Mg Tablet, 1,000 MG PO BID Montelukast Sodium (Montelukast Sodium) 10 Mg Tab, 10 MG PO DAILY Omeprazole (Omeprazole) 20 Mg Capsule.dr, 20 MG PO DAILY Simvastatin (Simvastatin) 20 Mg Tab, 20 MG PO QHS Trazodone HCl (Trazodone HCl) 50 Mg Tablet, 100 MG PO QHS Scheduled PRN Meloxicam (Meloxicam) 7.5 Mg Tablet, 7.5 MG PO Q12H PRN for PAIN LEVEL 1-4 Tizanidine HCl (Tizanidine HCl) 2 Mg Cap, 2 MG PO Q8H PRN for MUSCLE SPASMS Allergies Coded Allergies: ENVIRONMENTAL (Verified Allergy, Unknown, 02/22/21) A-FIB/CHADSVASC A-FIB History Current/History of A-Fib/PAF?: No MALISSA RHODES DO Mar 15, 2021 12:28
[2021-03-15 12:30] VITALS: BP 123/67
[2021-03-15] MEDS: hydroCHLOROthiazide 12.5 MG CAPSULE PO SCH ×2 (12:44→12:57)
[2021-03-15] MEDS: LEVOTHYROXINE 125MCG TABLET (0.125MG) PO SCH (12:50)
[2021-03-15] MEDS: ASPIRIN 81MG ENTERIC TABLET PO SCH ×2 (12:55→21:04)
[2021-03-15] MEDS: LORATADINE 10 MG TAB PO SCH (12:57)
[2021-03-15] MEDS: FERROUS SULFATE 325MG TAB PO SCH (12:57)
[2021-03-15] MEDS: ASCORBIC ACID 500 MG TAB PO SCH (12:57)
[2021-03-15] MEDS: MONTELUKAST 10 MG TAB PO SCH (12:57)
[2021-03-15] MEDS: DOCUSATE SODIUM 100MG CAPSULE PO SCH ×2 (12:58→21:04)
[2021-03-15] MEDS: ACETAMINOPHEN TAB 650MG DOSE (2X325MG) PO SCH ×2 (12:58→17:39)
[2021-03-15] MEDS: HumaLOG INSULIN (NovoLOG) PER UNIT SC SCH ×2 (12:59→17:38)
[2021-03-15] MEDS: LR 1,000 ML IV SCH ×2 (13:00→21:03)
[2021-03-15] MEDS: FLUTICASONE PROP 0.05% NASAL SPRAY 16 GM (FLONASE) NARES SCH (13:00)
[2021-03-15] MEDS: NAPROXEN 250 MG TAB PO SCH ×2 (13:00→21:04)
[2021-03-15 13:30] VITALS: BP 109/92
[2021-03-15 14:30] VITALS: BP 122/65
[2021-03-15 15:30] VITALS: BP 108/58
[2021-03-15 16:30] VITALS: BP 150/74
[2021-03-15] MEDS: ceFAZolin SOD 1 GM in D5W MINI-BAG PLUS 50 ML IV SCH ×2 (16:37→17:37)
[2021-03-15] MEDS: BENZONATATE 100MG CAPSULE PO SCH ×2 (16:37→21:04)
[2021-03-15] MEDS ORDERED: SIMVASTATIN 20 MG TAB PO SCH (21:00)
[2021-03-15] MEDS ORDERED: HumaLOG INSULIN (NovoLOG) PER UNIT SC SCH (21:00)
[2021-03-15] MEDS ORDERED: AZELASTINE 137MCG NASAL SPY 30 ML (ASTELIN) SCH (21:00)
[2021-03-15] MEDS: guaiFENesin ER 600 MG TAB PO SCH (21:03)
[2021-03-15] MEDS: **hydrALAZINE** 10 MG TAB PO SCH (21:03)
[2021-03-16] MEDS: ceFAZolin SOD 1 GM in D5W MINI-BAG PLUS 50 ML IV SCH ×2 (00:15→00:53)
[2021-03-16] MEDS: ACETAMINOPHEN TAB 650MG DOSE (2X325MG) PO SCH ×3 (00:53→12:21)
[2021-03-16 02:00] VITALS: BP 111/67
[2021-03-16 06:00] VITALS: BP 118/69
[2021-03-16 06:16] LABS: HEMATOCRIT 28.3 % (36.0-47.0); HEMOGLOBIN 8.8 g/dl (12.0-15.5); MEAN CORPUSCULAR HEMOGLOBIN 27.4 pg (27.0-33.0); MEAN CORPUSCULAR HGB CONC 31.1 g/dl (32.0-36.5); MEAN CORPUSCULAR VOLUME 88.2 fl (80.0-96.0); PLATELET COUNT, AUTOMATED 281 10^3/uL (150-450); RED BLOOD COUNT 3.21 10^6/uL (4.00-5.40); WHITE BLOOD COUNT 13.2 10^3/uL (4.0-10.0)
[2021-03-16] MEDS: LEVOTHYROXINE 125MCG TABLET (0.125MG) PO SCH (06:24)
[2021-03-16 06:36] LABS: CALCIUM LEVEL 8.5 MG/DL (8.8-10.2); CREATININE FOR GFR 1.34 MG/DL (0.55-1.30); GLOMERULAR FILTRATION RATE 42.4 (>45); MAGNESIUM LEVEL 1.6 MG/DL (1.8-2.4); POTASSIUM SERUM 4.1 MEQ/L (3.5-5.1)
--- NOTE | 2021-03-16 07:27 | IPNPDOC ---
Text Note Date of Service The patient was seen on 03/16/21. NOTE POD 1 R TKA Pt states pain is manageable. Denies CP/SOB. Has mobilized to BR with Assist and walker. Bulky Dressing intact, taken down. No staining to dressing. Bruising diffuse to R leg. Grossly NVI R foot and ankle. Palpable DP and PT pulses. Moving foot and toes. PACU xray imaging shows prosthesis in position with no obvious complications. Plan for DC home when able after Hospitalist and PT eval. Discharge Instructions Total Knee Arthroplasty 1. Pain: You may take tramadol or oxycodone as prescribed for pain. Supplement with Naproxen and Tylenol as needed. Ice pack to operative knee as tolerated. 2. Wound care: Remove dressing on postop day 7. Call [phone] with any questions or concerns. Hygiene: The patient may shower. No tub baths. Check dressing seal prior to bathing. 3. Activity: WBAT right lower extremity. Front wheeled walker versus crutches for ambulation. Fall precautions. 4. Driving: No driving until cleared by your surgeon. Do not drive if taking narcotic pain medications as these may make you drowsy. 5. DVT Prophylaxis: Continue taking aspirin 81 mg p.o. twice daily as prescribed for the prevention of blood clots. Ankle pumps every 1 hour while awake. TOM hose at all times for 1 month after surgery. May remove for hygiene and wound care. 6. Placement: Plan is to discharge patient to home with home health including nursing and physical therapy. 7. Surgeon Follow-up: The patient is scheduled to be seen in Dr. Sargent's office 2 weeks post op with xrays. 8. Primary care Follow-up: Please see your primary care provider in the next 2 to 5 weeks for general medical re-evaluation and medication review. 9. Labs: CBC without differential to be drawn on postop day 3 with results to PCP and please fax to [phone]. 10. Please contact [facility] if you have any questions or concerns at [phone]. VS,Fishbone, I+O VS, Fishbone, I+O Laboratory Tests 03/16/21 05:40 Vital Signs Date Time Temp Pulse Resp B/P (MAP) Pulse Ox O2 Delivery O2 Flow Rate FiO2 03/16/21 06:00 98.1 73 18 118/69 (85) 95 Nasal Cannula 2.0 I&O- Last 24 Hours up to 6 AM 03/16/21 06:00 Intake Total 2965 ml Output Total 850 ml Balance 2115 ml KHADAR SARGENT MD Mar 16, 2021 07:27
[2021-03-16] MEDS: HumaLOG INSULIN (NovoLOG) PER UNIT SC SCH ×2 (08:36→12:00)
[2021-03-16] MEDS: guaiFENesin ER 600 MG TAB PO SCH (08:37)
[2021-03-16] MEDS: DOCUSATE SODIUM 100MG CAPSULE PO SCH (08:37)
[2021-03-16] MEDS: ASPIRIN 81MG ENTERIC TABLET PO SCH (08:38)
[2021-03-16] MEDS: LORATADINE 10 MG TAB PO SCH (08:38)
[2021-03-16] MEDS: FLUTICASONE PROP 0.05% NASAL SPRAY 16 GM (FLONASE) NARES SCH (08:38)
[2021-03-16] MEDS: ASCORBIC ACID 500 MG TAB PO SCH (08:38)
[2021-03-16] MEDS: BENZONATATE 100MG CAPSULE PO SCH (08:38)
[2021-03-16] MEDS: FERROUS SULFATE 325MG TAB PO SCH (08:38)
[2021-03-16] MEDS: MONTELUKAST 10 MG TAB PO SCH (08:39)
[2021-03-16] MEDS: NAPROXEN 250 MG TAB PO SCH (08:45)
[2021-03-16 08:47] VITALS: BP 164/90
[2021-03-16] MEDS: **hydrALAZINE** 10 MG TAB PO SCH (08:47)
[2021-03-16] MEDS ORDERED: OMEPRAZOLE 20 MG CAP PO SCH (09:00)
[2021-03-16] MEDS ORDERED: CitaloPRAM (CeleXA) 20 MG TAB PO SCH (09:00)
[2021-03-16 10:00] VITALS: BP 155/74
[2021-03-16 13:04] LABS: CALCIUM LEVEL 8.9 MG/DL (8.8-10.2); CREATININE FOR GFR 1.17 MG/DL (0.55-1.30); GLOMERULAR FILTRATION RATE 49.6 (>45); POTASSIUM SERUM 3.8 MEQ/L (3.5-5.1)
[2021-03-16] MEDS ORDERED: TRAM50TA2 PO (13:29)
[2021-03-16] MEDS ORDERED: DOCU100C16 PO (13:42)
[2021-03-16] MEDS ORDERED: NAPR-849 PO (13:42)
[2021-03-16] MEDS ORDERED: ASPI-551 PO (13:42)
--- NOTE | 2021-03-16 17:55 | DS.PDOC ---
Discharge Summary General Date of Admission Mar 15, 2021 at 10:53 Date of Discharge 03/16/2021 Attending Physician: MALISSA RHODES DO Specialist/Consultants Involve: KHADAR SARGENT MD Discharge Summary PROCEDURES PERFORMED DURING STAY: Right knee total arthroplasty from Dr. Sargent. ADMITTING DIAGNOSES: 1. Right knee osteoarthritis. 2. Type 2 diabetes mellitus 3. Pretension 4. Lipidemia 5. Asthma 6. Depression anxiety 7. Hypothyroidism DISCHARGE DIAGNOSES: 1. Right knee osteoarthritis. 2. Type 2 diabetes mellitus 3. Pretension 4. Lipidemia 5. Asthma 6. Depression anxiety 7. Hypothyroidism COMPLICATIONS/CHIEF COMPLAINT: Right Knee Osteoarthritis. HISTORY OF PRESENT ILLNESS: Patient is a 65-year-old female who presented to the hospital for her right knee total arthroplasty as performed by Dr. Sargent of orthopedic surgery. Patient was in her usual state of health prior to coming in for the surgery. Patient is having some mild pain in her right knee but is otherwise feeling well when seen in the postop area. Patient states that she had a left knee total arthroplasty in October 2020 which went well. Patient has been treating her knee issues with conservative measures but ended up needing replacements at this time. Patient does not have any other complaints at this time.. HOSPITAL COURSE: Patient did well overnight and worked with physical therapy on the morning of 03/16/2021. Morning labs on 03/16/2021 showed a mild elevation of the patient's creatinine. This was rechecked at noon time which showed that the creatinine was back down to her baseline. Patient cleared with physical therapy and Dr. Sargent saw the patient and also cleared the patient to go home. Patient was discharged home on 03/16/2021. DISCHARGE MEDICATIONS: Please see below. ALLERGIES: Please see below. PHYSICAL EXAMINATION ON DISCHARGE: VITAL SIGNS: Please see below. General: Alert and oriented female patient who was sitting in the edge of the bed when I walked in. Patient not appear to be in any acute distress. HEENT: Normocephalic, atraumatic, moist mucous membranes. Neck: No lymphadenopathy or thyromegaly Cardiac: Regular rate and rhythm, no murmurs, normal S1, normal S2 Pulm: Clear to auscultation bilaterally. No wheezes, rhonchi, rales Abd: Nondistended, nontender to palpation, normal bowel sounds Ext: No edema bilateral lower extremities, bandage over the right knee was clean dry and intact LABORATORY DATA: Please see below. IMAGING: Right knee x-ray performed on 03/07/2021 was reported to show status post total knee replacement with the femoral and tibial components well-seated and well approximated. PROGNOSIS: Good ACTIVITY: As tolerated. DIET: Consistent carbohydrate DISCHARGE PLAN: Discharge home with home health service DISPOSITION: 01 Home, Self-Care. DISCHARGE INSTRUCTIONS: 1. Pain: You may take tramadol or oxycodone as prescribed for pain. Supplement with Naproxen and Tylenol as needed. Ice pack to operative knee as tolerated. 2. Wound care: Remove dressing on postop day 7. Call [phone] with any que stions or concerns. Hygiene: The patient may shower. No tub baths. Check dressing seal prior to bathing. 3. Activity: WBAT right lower extremity. Front wheeled walker versus crutches for ambulation. Fall precautions. 4. Driving: No driving until cleared by your surgeon. Do not drive if taking narcotic pain medications as these may make you drowsy. 5. DVT Prophylaxis: Continue taking aspirin 81 mg p.o. twice daily as prescribed for the prevention of blood clots. Ankle pumps every 1 hour while awake. TOM hose at all times for 1 month after surgery. May remove for hygiene and wound care. 6. Placement: Plan is to discharge patient to home with home health including nursing and physical therapy. 7. Surgeon Follow-up: The patient is scheduled to be seen in Dr. Sargent's office 2 weeks post op with xrays. 8. Primary care Follow-up: Please see your primary care provider in the next 2 to 5 weeks for general medical re-evaluation and medication review. 9. Labs: CBC without differential to be drawn on postop day 3 with results to PCP and please fax to [phone]. 10. Please contact [facility] if you have any questions or concerns at [phone]. 11. Return the emergency department if symptoms worsen ITEMS TO FOLLOWUP ON ON OUTPATIENT: 1. CBC and BMP for Sunday. DISCHARGE CONDITION: Stable. TIME SPENT ON DISCHARGE: 25 minutes. Vital Signs/I&Os Vital Signs Date Time Temp Pulse Resp B/P (MAP) Pulse Ox O2 Delivery O2 Flow Rate FiO2 03/16/21 14:22 18 03/16/21 10:00 97.9 65 155/74 (101) 96 Nasal Cannula 2.0 I&O- Last 24 Hours up to 6 AM 03/16/21 06:00 Intake Total 2965 ml Output Total 850 ml Balance 2115 ml Laboratory Data Labs 24H Laboratory Tests 2 03/15/21 20:49: Bedside Glucose (Misc Panel) 255H 03/16/21 05:40: Nucleated Red Blood Cells % (auto) 0.0, Anion Gap 8, Glomerular Filtration Rate 42.4L, Calcium Level 8.5L, Magnesium Level 1.6L 03/16/21 11:31: Bedside Glucose (Misc Panel) 124H 03/16/21 12:33: Anion Gap 9, Glomerular Filtration Rate 49.6, Calcium Level 8.9 CBC/BMP Laboratory Tests 03/16/21 05:40 03/16/21 12:33 FSBS Laboratory Tests Test 03/15/21 20:49 03/16/21 11:31 Range/Units Bedside Glucose (Misc Panel) 255 124 80-115 MG/DL Discharge Medications Scheduled Acetaminophen (Acetaminophen) 325 Mg Tablet, 650 MG PO Q6H Alogliptin Benzoate (Alogliptin) 25 Mg Tab, 25 MG PO DAILY, (Reported) Ascorbic Acid (Vitamin C) 500 Mg Tablet, 1,000 MG PO DAILY, (Reported) Aspirin (Aspirin EC) 81 Mg Tablet.dr, 81 MG PO BID Benzonatate (Tessalon Perle) 100 Mg Capsule, 100 MG PO TID, (Reported) Citalopram Hydrobromide (Citalopram HBr) 20 Mg Tab, 20 MG PO DAILY, (Reported) Docusate Sodium (Docusate Sodium) 100 Mg Capsule, 100 MG PO BID Ergocalciferol (Vitamin D2) (Vitamin D2) 50,000 Units Cap, 1 CAP PO 1XWK, (Reported) SUNDAYS Fluticasone Propion/Salmeterol (Airduo Digihaler 232-14 Mcg) 232 Mcg-14 Mcg/Actuation Aer.pw.bas, 1 EACH IH BID, (Reported) Fluticasone Propionate (Flonase Allergy Relief) 9.9 Ml [place].susp, 2 SPRAY NARES DAILY, (Reported) Guaifenesin (Mucinex) 600 Mg Tab.er.12h, 600 MG PO BID, (Reported) Hydralazine HCl (Hydralazine HCl) 10 Mg Tab, 10 MG PO BID, (Reported) Hydrochlorothiazide (Hydrochlorothiazide) 12.5 Mg Tab, 12.5 MG PO DAILY, (Reported) Levothyroxine Sodium (Synthroid) 125 Mcg Tablet, 125 MCG PO 6XWK, (Reported) EVERY DAY EXCEPT SUNDAYS Levothyroxine Sodium (Levothyroxine Sodium) 125 Mcg Tablet, 250 MCG PO 1XWK, (Reported) SUNDAYS Loratadine (Loratadine) 10 Mg Tablet, 10 MG PO DAILY, (Reported) Metformin HCl (Metformin HCl) 500 Mg Tablet, 1,000 MG PO BID, (Reported) Montelukast Sodium (Montelukast Sodium) 10 Mg Tab, 10 MG PO DAILY, (Reported) Naproxen (Naproxen) 250 Mg Tablet, 250 MG PO Q12H Omeprazole (Omeprazole) 20 Mg Capsule.dr, 20 MG PO DAILY, (Reported) Simvastatin (Simvastatin) 20 Mg Tab, 20 MG PO QHS, (Reported) Trazodone HCl (Trazodone HCl) 50 Mg Tablet, 100 MG PO QHS, (Reported) Scheduled PRN Tizanidine HCl (Tizanidine HCl) 2 Mg Cap, 2 MG PO Q8H PRN for MUSCLE SPASMS, (Reported) Tramadol HCl (Tramadol HCl) 50 Mg Tablet, 50 MG PO Q6HP PRN for PAIN LEVEL 5-10 Allergies Coded Allergies: ENVIRONMENTAL (Verified Allergy, Unknown, 02/22/21) MALISSA ROHDES DO Mar 16, 2021 17:55
== END 2021-03-16 14:40 | disposition home or self-care (01) ==
LOC: M SDC 06:04 → M MS5PR 10:52 → UNDOADMIN 10:53 → M MS5PR 11:55 → M SDC 03-16 14:40 → UNDODISIN 03-16 14:40
PROVIDERS: ATTEND Orthopaedic Surgery Adult Reconstructive Orthopaedic Surgery
DX: M17.11 Unilateral primary osteoarthritis, right knee (principal); I10 Essential (primary) hypertension; J45.909 Unspecified asthma, uncomplicated; E78.5 Hyperlipidemia, unspecified; E03.9 Hypothyroidism, unspecified; E11.9 Type 2 diabetes mellitus without complications; F41.9 Anxiety disorder, unspecified; F32.9 Major depressive disorder, single episode, unspecified; Z96.652 Presence of left artificial knee joint
CPT/HCPCS: 27447; 36415; 73560; 80048; 83735; 85027; 88304; 88311; 96365; 96366; 97110; 97116; 97161; 97165; 97530; 97535; C1776; J0690; J1100; J2250; J2270; J2370; J2405; J2710; J2765; J3010

== ENCOUNTER → 2021-03-29 | Outpatient (CLI) | payer OTHER ==
[~2021-03-29] MED LIST changes: +DOCU100C16 PO; +FLON1SPR NARES; -LIDOCAINE 1% MDV 20ML VIAL SQ PRN; -LR 1,000 ML IV ONE; -ceFAZolin SOD 1 GM in D5W MINI-BAG PLUS 50 ML IV ONE
--- NOTE | 2021-03-29 13:43 | REP ---
INDICATION: RT ARTIFICIAL KNEE. COMPARISON: None. TECHNIQUE: AP, lateral, sunrise views of the right knee FINDINGS: Patient is again noted to be status post arthroplasty with normal satisfactory appearance and positioning to the orthopedic hardware. Previous postsurgical soft tissue changes appear improved/decreased. IMPRESSION: Decreasing postsurgical changes. <Electronically signed by Stephen Wilde > 03/29/21 [id number]
== END ==
LOC: M SOG 13:17
PROVIDERS: ATTEND Orthopaedic Surgery Adult Reconstructive Orthopaedic Surgery
DX: Z96.651 Presence of right artificial knee joint (principal)

== ENCOUNTER → 2022-02-08 | Outpatient (CLI) | payer OTHER ==
[~2022-02-08] MED LIST changes: -MONT10TA10 PO; +MONT10TA97 PO
== END ==
LOC: M SOG 08:29
PROVIDERS: ATTEND Orthopaedic Surgery Adult Reconstructive Orthopaedic Surgery
DX: Z96.651 Presence of right artificial knee joint (principal); Z96.652 Presence of left artificial knee joint

== ENCOUNTER → 2022-05-03 | Outpatient (CLI) | payer OTHER | LOC: M SOG 08:12 | PROVIDERS: ATTEND Orthopaedic Surgery Adult Reconstructive Orthopaedic Surgery | DX: Z96.653 Presence of artificial knee joint, bilateral (principal) ==